=== PATIENT | male | born 1970 | race African-American/Black ===

== ENCOUNTER 2016-09-14 09:50 | Emergency (ER) | payer SELFPAY ==
[~2016-09-14] VITALS: Ht 167.6 cm; Wt 83.9 kg
[2016-09-14 10:33] LABS: BASOPHILS # (AUTO) 0.1 10^3/uL (0.0-0.1); BASOPHILS % (AUTO) 1 % (0-10); EOSINOPHILS # (AUTO) 0.3 10^3/uL (0.0-0.3); EOSINOPHILS % (AUTO) 4 % (0-10); LYMPHOCYTES # (AUTO) 3.1 X 10^3 (1.0-4.0); LYMPHOCYTES % (AUTO) 39 % (12-44); MEAN CORPUSCULAR HEMOGLOBIN 29 PG (25-34); MEAN CORPUSCULAR HGB CONC 34 G/DL (32-36); MEAN CORPUSCULAR VOLUME 87 FL (80-99); MEAN PLATELET VOLUME 9.9 FL (7.4-10.4); MONOCYTES # (AUTO) 0.7 X 10^3 (0.0-1.0); MONOCYTES % (AUTO) 9 % (0-12); NEUTROPHILS # (AUTO) 3.8 X 10^3 (1.8-7.8); NEUTROPHILS % (AUTO) 47 % (42-75); PLATELET COUNT 317 10^3/uL (130-400); RED BLOOD COUNT 4.72 10^6/uL (4.35-5.85); RED CELL DISTRIBUTION WIDTH 12.4 % (10.0-14.5)
[2016-09-14 10:53] LABS: ANION GAP 6 MMOL/L (5-14); BLOOD UREA NITROGEN 13 MG/DL (7-18); BUN/CREATININE RATIO 13; CALCIUM 9.1 MG/DL (8.5-10.1); CARBON DIOXIDE 27 MMOL/L (21-32); CHLORIDE 107 MMOL/L (98-107); CREATININE SERUM 0.98 MG/DL (0.60-1.30); GFR ESTIMATED > 60; GLUCOSE 95 MG/DL (70-105); POTASSIUM 3.4 MMOL/L (3.6-5.0); SODIUM 140 MMOL/L (135-145)
[2016-09-14] MEDS ORDERED: KETOROLAC 60 MG/2 ML VIAL IM STA (11:09)
[2016-09-14] MEDS ORDERED: DOXY100C42 PO (11:13)
[2016-09-14] MEDS ORDERED: CIPR-225 PO (11:13)
--- NOTE | 2016-09-14 11:13 | ED GU-Male ---
General Chief Complaint: -Male Stated Complaint: R TESTICLE PAIN Nursing Triage Note: AMB TO ROOM PATIENT MUMBLE WORDS WHAT WAS WRONG WITH HIM INFORMED HE HAD TO TALK SO I COULD UNDERSTAD. STATED HE HAS HAD TESTICLE PAIN FOR 3 MONTHS WAS GIVEN SOME DOXYCYCLINE FOR UNKNOW DX DID NOT TAKE MEDS. ASKING FOR PAIN MEDS ON ADMIT. Source: patient (DIFFICULT HISTORIAN--EXTREMELY VAGUE AND MUMBLES--SPEECH DIFFICULT TO UNDERSTAND. ) History of Present Illness Time seen by provider: 10:00 Initial Comments PT C/O RIGHT TESTICULAR PAIN FOR "A MONTH" --( TOLD RN IT HAD BEEN AT LEAST 3 MONTHS ) PT STATES HE WENT TO [facility] IN [place] A MONTH AGO FOR THIS PROBLEM AND WAS GIVEN RX FOR UNKNOWN MEDICATION ( TOLD RN IT WAS DOXYCYCLINE ) BUT PT NEVER FILLED RX--"CAN'T AFFORD IT" STATES HE HAS NOT SEEN ANYONE ELSE SINCE THAT TIME NO DIFFICULTY URINATING, NO BURNING ON URINATION NO DISCHARGE FROM PENIS NO NAUSEA/VOMITING NO FEVER STATES HE BREAKS OUT IN A SWEAT FROM THE PAIN, BUT STATES HE HAS NOT TAKEN ANYTHING FOR PAIN--REPEATEDLY WANTING SOMETHING FOR PAIN SOON HE ARRIVES PT DOES NOT HAVE A PCP ANYWHERE PT LIVES IN [place] AND IS UNEMPLOYED. Allergies and Home Medications Allergies Coded Allergies: No Known Drug Allergies (Unverified , 09/14/16) Home Medications Ciprofloxacin HCl 500 Mg Tablet, 500 MG PO BID, #20 Prescribed by: ALF JONES on 09/14/16 1113 Doxycycline Monohydrate 100 Mg Capsule, 100 MG PO BID, #20 Prescribed by: ALF JONES on 09/14/16 1113 Constitutional: diaphoresis Respiratory: no symptoms reported Cardiovascular: no symptoms reported Gastrointestinal: no symptoms reported, No abdominal pain Genitourinary: see HPI Musculoskeletal: no symptoms reported, No back pain Skin: no symptoms reported Psychiatric/Neurological: No Symptoms Reported Endocrine: No Symptoms Reported Past Hdtwvjc-Jrqluw-Atjzez Hx Patient Social History Alcohol Use: Regular Use (HEAVY AT TIMES) Recreational Drug Use: Yes (THC IS ALL HE ADMITS TO, BUT TESTED + FOR THC, COCAINE AND AMPHETAMINES ON 09/14/16) Smoking Status: Current Everyday Smoker (1/2 PPD) Type Used: Cigarettes Recent Foreign Travel: No Contact w/Someone Who Travel: No Recent Infectious Disease Expo: No Surgeries HX Surgeries: No Respiratory Hx Respiratory Disorders: No Cardiovascular Hx Cardiac Disorders: No Neurological Hx Neurological Disorders: No Reproductive System Hx Reproductive Disorders: No Genitourinary Hx Genitourinary Disorders: No Gastrointestinal Hx Gastrointestinal Disorders: No Musculoskeletal Hx Musculoskeletal Disorders: No Endocrine Hx Endocrine Disorders: No HEENT HX ENT Disorders: No Cancer Hx Cancer: No Psychosocial Hx Psychiatric Problems: No Integumentary HX Skin/Integumentary Disorder: No Blood Transfusions Hx Blood Disorders: No Physical Exam Vital Signs Vital Sign - Last 12Hours 09/14/16 09:56 Temp 97.9 Pulse 69 Resp 18 B/P (MAP) 134/74 Pulse Ox 100 O2 Delivery Room Air Capillary Refill : Less Than 3 Seconds General Appearance: other (CONSTANT MOVEMENTS OF BODY, ANXIOUS, KEEPS EYES CLOSED, SPEECH RAPID AND MUMBLING AND DIFFICULT TO KEEP ON SUBJECT) Cardiovascular: regular rate, rhythm, no murmur Respiratory: normal breath sounds Gastrointestinal: normal bowel sounds, non tender, soft Male: testicular tenderness (AND SWELLING/FIRMNESS TO TESTICLE AND EPIDIDYMIS AREA. ), other (PENIS WITHOUT DISCHARGE. FEW TINY FLESH-TONED PAPULES TO HEAD OF PENIS. NO ULCERATIONS. MILD RIGHT INGUINAL ADENOPATHY. 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, no motor/sensory deficits, alert, oriented x 3, other (ANXIOUS, CONSTANT MOVEMENTS) Skin: normal color, warm/dry Progress/Results/Core Measures Results/Orders Lab Results Laboratory Tests Test 09/14/16 10:23 09/14/16 11:07 09/14/16 11:24 Range/Units White Blood Count 8.0 4.3-11.0 10^3/uL Red Blood Count 4.72 4.35-5.85 10^6/uL Hemoglobin 13.9 13.3-17.7 G/DL Hematocrit 41 40-54 % Mean Corpuscular Volume 87 80-99 FL Mean Corpuscular Hemoglobin 29 25-34 PG Mean Corpuscular Hemoglobin Concent 34 32-36 G/DL Red Cell Distribution Width 12.4 10.0-14.5 % Platelet Count 317 130-400 10^3/uL Mean Platelet Volume 9.9 7.4-10.4 FL Neutrophils (%) (Auto) 47 42-75 % Lymphocytes (%) (Auto) 39 12-44 % Monocytes (%) (Auto) 9 0-12 % Eosinophils (%) (Auto) 4 0-10 % Basophils (%) (Auto) 1 0-10 % Neutrophils # (Auto) 3.8 1.8-7.8 X 10^3 Lymphocytes # (Auto) 3.1 1.0-4.0 X 10^3 Monocytes # (Auto) 0.7 0.0-1.0 X 10^3 Eosinophils # (Auto) 0.3 0.0-0.3 10^3/uL Basophils # (Auto) 0.1 0.0-0.1 10^3/uL Sodium Level 140 135-145 MMOL/L Potassium Level 3.4 L 3.6-5.0 MMOL/L Chloride Level 107 98-107 MMOL/L Carbon Dioxide Level 27 21-32 MMOL/L Anion Gap 6 5-14 MMOL/L Blood Urea Nitrogen 13 7-18 MG/DL Creatinine 0.98 0.60-1.30 MG/DL Estimat Glomerular Filtration Rate > 60 BUN/Creatinine Ratio 13 Glucose Level 95 70-105 MG/DL Calcium Level 9.1 8.5-10.1 MG/DL Urine Color YELLOW Urine Clarity SLIGHTLY CLOUDY Urine pH 8 5-9 Urine Specific [place] 1.015 L 1.016-1.022 Urine Protein NEGATIVE NEGATIVE Urine Glucose (UA) NEGATIVE NEGATIVE Urine Ketones NEGATIVE NEGATIVE Urine Nitrite NEGATIVE NEGATIVE Urine Bilirubin NEGATIVE NEGATIVE Urine Urobilinogen 1 NORMAL MG/DL Urine Leukocyte Esterase 1+ H NEGATIVE Urine RBC (Auto) NEGATIVE NEGATIVE Urine RBC NONE /HPF Urine WBC 0-2 /HPF Urine Squamous Epithelial Cells NONE /HPF Urine Crystals NONE /LPF Urine Amorphous Sediment LARGE SURINDER PHOSPHATE H /LPF Urine Bacteria NEGATIVE /HPF Urine Casts NONE /LPF Urine Mucus NEGATIVE /LPF Urine Culture Indicated NO Urine Opiates Screen NEGATIVE NEGATIVE Urine Oxycodone Screen NEGATIVE NEGATIVE Urine Methadone Screen NEGATIVE NEGATIVE Urine Propoxyphene Screen NEGATIVE NEGATIVE Urine Barbiturates Screen NEGATIVE NEGATIVE Ur Tricyclic Antidepressants Screen NEGATIVE NEGATIVE Urine Phencyclidine Screen NEGATIVE NEGATIVE Urine Amphetamines Screen POSITIVE H NEGATIVE Urine Methamphetamines Screen NEGATIVE NEGATIVE Urine Benzodiazepines Screen NEGATIVE NEGATIVE Urine Cocaine Screen POSITIVE H NEGATIVE Urine Cannabinoids Screen POSITIVE H NEGATIVE My Orders Orders - ALF JONES DO Basic Metabolic Panel (09/14/16 10:10) Cbc With Automated Diff (09/14/16 10:10) Drug Screen Stat (Urine) (09/14/16 10:10) Ua Culture If Indicated (09/14/16 10:10) Us Scrotum (Testicle) [id number] (09/14/16 10:10) Neisseria Gonorrhea Dna (09/14/16 10:10) Chlam Dna Probe (09/14/16 10:10) Genital Culture (09/14/16 10:10) Ketorolac Injection (Toradol Injection) (09/14/16 11:09) Ceftriaxone Injection (Rocephin Injectio (09/14/16 11:15) Lidocaine 1% Injection (Xylocaine 1% Inj (09/14/16 11:15) Azithromycin Tablet (Zithromax Tablet) (09/14/16 11:15) Medications Given in ED Current Medications Medications Dose Ordered Sig/Jeannie Route Start Time Stop Time Status Last Admin Dose Admin Azithromycin 1,000 mg ONCE ONCE PO 09/14/16 11:15 09/14/16 11:16 DC 09/14/16 11:21 1,000 MG Ceftriaxone Sodium 1,000 mg ONCE ONCE IM 09/14/16 11:15 09/14/16 11:16 DC 09/14/16 11:22 1,000 MG Lidocaine HCl 2.1 ml ONCE ONCE INJ 09/14/16 11:15 09/14/16 11:16 DC 09/14/16 11:22 2.1 ML Vital Signs/I&O Vital Sign - Last 12Hours 09/14/16 09/14/16 09:56 11:38 Temp 97.9 Pulse 69 71 Resp 18 18 B/P (MAP) 134/74 Pulse Ox 100 98 O2 Delivery Room Air Blood Pressure Mean: 94 Diagnostic Imaging Comments SCROTAL ULTRASOUND--+ RIGHT EPIDIDYMITIS, PER TECH REPORT AND RADIOLOGIST REPORT Reviewed: Reviewed by Me Departure Impression Impression: Primary Impression: Epididymitis, right Additional Impression: Illicit drug use Disposition: 01 HOME, SELF-CARE Condition: Stable Departure-Patient Inst. Referrals: NO,LOCAL PHYSICIAN (PCP/Family) Primary Care Physician Patient Instructions: Epididymitis (DC) Add. Discharge Instructions: TYLENOL 1 GRAM / MOTRIN 800 MG 4 TIMES A DAY FOR PAIN LOTS OF CLEAR LIQUIDS FOLLOW UP WITH OF [facility] IN 1 WEEK FOR RECHECK---CALL TODAY TO MAKE APPOINTMENT All discharge instructions reviewed with patient and/or family. Voiced understanding. Scripts Doxycycline Monohydrate (Doxycycline Monohydrate) 100 Mg Capsule 100 MG PO BID, #20 CAP Prov: ALF JONES DO 09/14/16 Ciprofloxacin HCl (Cipro) 500 Mg Tablet 500 MG PO BID, #20 TAB Prov: ALF JONES DO 09/14/16 ALF JONES DO September 14, 2016 11:13
[2016-09-14] MEDS ORDERED: LIDOCAINE 1% INJ 20 ML (XYLOCAINE) VIAL INJ ONE (11:15)
[2016-09-14] MEDS ORDERED: AZITHROMYCIN 250 MG TAB (ZITHROMAX) PO ONE (11:15)
[2016-09-14] MEDS ORDERED: cefTRIAXone 1 GM (ROCEPHIN) VIAL IM ONE (11:15)
[2016-09-14 11:31] LABS: BILIRUBIN,URINE NEGATIVE (NEGATIVE); KETONES,URINE NEGATIVE (NEGATIVE); LEUKOCYTE ESTERASE ,URINE 1+ (NEGATIVE); NITRITE,URINE NEGATIVE (NEGATIVE); PH,URINE 8 (5-9); PROTEIN,URINE NEGATIVE (NEGATIVE); UROBILINOGEN,URINE 1 MG/DL (NORMAL)
--- NOTE | 2016-09-14 11:34 | Diagnostic Imaging Report ---
EXAMINATION: Scrotal ultrasound. INDICATION: Right scrotal pain. FINDINGS: The right testicle measures 3.4 x 2.6 x 3.4 cm. The left testicle is 3.2 x 2.2 x 2.7 cm. The echotexture of both testicles appears within normal limits. There is no solid mass identified. There is swelling and hyperemia seen in the epididymis on the right side, mostly involving the tail inferiorly. Arterial waveforms are demonstrated in the right testicle. Color flow is seen over the left testicle. Specific vascular waveform interrogation was not performed on the left testicle. Color flow with Doppler appears to be within normal limits. No hydrocele or varicocele of significance. IMPRESSION: Findings are suggestive of right epididymitis. Dictated by: Dictated on workstation # [id number]
[2016-09-14 11:38] VITALS: BP 131/89
[2016-09-14 11:45] LABS: WBC,URINE 0-2 /HPF
[2016-09-15 08:05] LABS: NEISSERIA GONORRHEA DNA Negative (Negative)
[2016-09-15 08:06] LABS: CHLAMYDIA DNA PROBE PT Negative (Negative)
== END 2016-09-14 11:38 | disposition home or self-care (01) ==
LOC: ER 09:54
DX: N45.1 Epididymitis (principal); F15.90 Other stimulant use, unspecified, uncomplicated; F12.90 Cannabis use, unspecified, uncomplicated; F11.90 Opioid use, unspecified, uncomplicated; F17.210 Nicotine dependence, cigarettes, uncomplicated
CPT/HCPCS: 36415; 76870; 80048; 80306; 81000; 85025; 87070; 87491; 87591; 96372; 99283